=== PATIENT | male | born 1980 | race Caucasian/White ===

== ENCOUNTER 2016-12-20 17:16 | Emergency (ER) | payer SELFPAY ==
[~2016-12-20] VITALS: Ht 188 cm; Wt 104.6 kg
[2016-12-20] MEDS ORDERED: KETOROLAC 60 MG/2 ML (TORADOL) VIAL IM ONE (19:00)
[2016-12-20] MEDS ORDERED: ED- CYCLOBENZAPRINE 10 MG (FLEXERIL) 3 TABLETS/BTL PO ONE (19:00)
[2016-12-20 19:20] VITALS: BP 138/74
== END 2016-12-20 19:21 | disposition home or self-care (01) ==
LOC: ED 17:19
DX: M54.89 Other dorsalgia (principal)
CPT/HCPCS: 96372; 99282; J1885

== ENCOUNTER 2016-12-25 17:09 | Emergency (ER) | payer SELFPAY ==
[~2016-12-25] VITALS: Ht 188 cm; Wt 104.6 kg
[2016-12-25] MEDS ORDERED: FLUORESCEIN (FLUOR-I-STRIPS) 1 MG STRIP OS ONE (18:10)
[2016-12-25 18:14] VITALS: BP 111/91
== END 2016-12-25 18:17 | disposition home or self-care (01) ==
LOC: ED 17:10
DX: G89.29 Other chronic pain (principal); M79.1 Myalgia
CPT/HCPCS: 99282; 99283

== ENCOUNTER 2016-12-29 10:21 | Emergency (ER) | payer SELFPAY ==
[~2016-12-29] VITALS: Ht 188 cm; Wt 108.0 kg
[2016-12-29 10:27] VITALS: BP 136/92
== END 2016-12-29 10:25 | disposition left against medical advice (07) ==
LOC: ED 10:22
DX: Z53.21 Procedure and treatment not carried out due to patient leaving prior to being seen by health care provider (principal)
CPT/HCPCS: 99282

== ENCOUNTER → 2017-01-05 | Emergency (ER) | payer SELFPAY | LOC: ED 17:31 | DX: Z53.21 Procedure and treatment not carried out due to patient leaving prior to being seen by health care provider (principal) ==

== ENCOUNTER 2017-01-06 16:08 | Emergency (ER) | payer SELFPAY ==
[~2017-01-06] VITALS: Ht 188 cm; Wt 107.0 kg
[2017-01-06 16:55] VITALS: BP 119/77
--- NOTE | 2017-01-06 20:15 | NUR ---
Noted pt is not in the room Dr. Dyson had been in to see pt at 1915, RN went in room at around 2015 and pt was no longer in the room, pt had not signed any dismissal papers.
== END 2017-01-06 20:15 | disposition home or self-care (01) ==
LOC: ED 16:09
DX: G89.29 Other chronic pain (principal); Z76.5 Malingerer [conscious simulation]
CPT/HCPCS: 99281

== ENCOUNTER → 2017-02-18 | Outpatient (CLI) | payer BC ==
[~2017-02-18] MED LIST: AZIT250T81 PO; BENZ200C43 PO; CPR500T PO; CYCL10TA45 PO; HYDR-3702 PO; HYDR-3719 PO; HYDR-3754 PO; KETO10TA PO; LD5PT TOP; LEVO500T16 PO; METH4TAB27 PO; METR500T PO; OXAP600T2 PO; TRAM-25 PO; TSSN473B PO; ZLP10T PO; ZOLP10TA PO; ZOLP5TAB
[2017-02-18 16:52] VITALS: BP 121/77
--- NOTE | 2017-02-18 16:52 | Urgent Care T Sheet Gen (E) ---
Intake General Temperature (Fahrenheit): 97.5 Pulse: 85 Blood Pressure Systolic: 121 Blood Pressure Diastolic: 77 Respirations: 18 SPO2: 96 Description of Symptoms Patient presents complaining of anxiety. Patient states he "[place]". Patient stopped by [facility] this afternoon and was told it would be 3 weeks before they could see him. Patient takes Ambien nightly which was prescribed by Dr Dumont, who is a intellectual property lawyer in [place]. Patient states he doesn't have a PCP and that no one will accept him. History of Present Illness Allergies: Coded Allergies: Penicillins (Verified Allergy, Unknown, 01/06/17) amoxicillin (Verified Allergy, Unknown, 01/06/17) codeine (Verified Allergy, Unknown, 01/06/17) tramadol (Verified Allergy, Unknown, NAUSEA, 01/06/17) Home Meds Active Scripts Hydrocodone Bit/Acetaminophen (Hydrocodon-Acetaminophen 5-325)1 Each Tablet1 Each PO Q6H Pain #30 TAB Prov:BRAD SUTTON MD 12/25/16 Cyclobenzaprine HCl (Flexeril)10 Mg [id number] Mg PO TID PRN PAIN #60 TAB Ref 0 Prov:BRAD SUTTON MD 12/25/16 Cyclobenzaprine HCl (Flexeril)10 Mg [id number] Mg PO TID PRN SPASMS #15 TAB Ref 0 Prov:JERARDO LOVETT MD 12/20/16 Hydrocodone/Acetaminophen (Bells 5mg/325mg)1 Each Tablet1-2 Tab PO Q6H PRN PAIN #10 TAB Ref 0 Prov:JERARDO LOVETT MD 12/20/16 Reported Medications Zolpidem Tartrate 10 Mg [id number] Mg PO HS 12/25/16 Respiratory Constitutional Symptoms: No syptoms reported All Other Systems Reviewed Remaining Systems: All other systems reviewed with negative findings Past Laakbnp-Ckiflp-Osztcx Hx Patient's Social History Alcohol Use: Denies Use Smoking Status: Former smoker Recent foreign travel: No Surgeries/Hospitalizations Hospitalization/Surgery Hx: DEVIATED SEPTUM, Respiratory Respiratory History: Sleep Apnea, Other, see comment Comment: CPAP Cardiovascular Cardiovascular History: None Neuro/Muscular Neuro/Muscular History: None Comment: SHINGLES Reproductive System Sexually Transmitted Diseases: No Genitouinary Genitourinary History: None Gastrointestinal GI/Endocrine History: Heartburn, Abdominal pain, Diarrhea, Constipation Diabetes Diabetes: No HEENT Impaired Vision: None Hearing Impaired: None Integumentary Integumentary History: None Cancer History of Cancer?: No Psychosocial Behavior Disorders: Anxiety, Other, See Comment Physical Exam Physical Exam General Appearance: WD/WN Departure Urgent Care Impression Impression: Primary Impression: Anxiety Departure Departed Disposition: To [facility] ED Condition: Stable Additional Instructions: Patient was not examined. Told him we do not treat anxiety at and that he would need to be seen at the ER for management. Instructed him to present there. That made the patient very upset which prompted him to leave stating "I hope I'm not being charged for this!" To which I replied "no End of report . KAYLEEN JEFFREY Feb 18, 2017 16:52
== END ==
LOC: MHUC 16:40
PROVIDERS: ATTEND Physician Assistant
DX: F41.9 Anxiety disorder, unspecified (principal); Z53.8 Procedure and treatment not carried out for other reasons